=== PATIENT | male | born 1955 | race American Indian/Alaskan Native ===

== ENCOUNTER 2020-11-06 10:52 | Emergency (ER) | payer MEDICARE ==
[2020-11-06] MEDS ORDERED: ALUM-MAG HYDROXIDE-SIMETHICONE 200-200-20MG/5ML ORAL LIQD 30 ML PO ONE (12:28)
--- NOTE | 2020-11-06 12:32 | Emergency Department Report ---
ED Chest Pain HPI - General Chief Complaint: Chest Pain Stated Complaint: CHEST PAIN X7DAYS Time Seen by Provider: 11/06/20 12:18 Source: patient Mode of arrival: Wheelchair Limitations: No Limitations - History of Present Illness Initial Comments: 65-year-old male with a past medical history of diabetes, hypertension, elevated cholesterol, and a psychiatric disorder presents from [place] with complaints of intermittent left-sided chest pain for the last 2 weeks. No aggravating alleviating factors reported. Pain is rated 5/10 in intensity. Associated with belching and what feels like a rumbling of gas. Patient denies nausea, vomiting, diaphoresis, shortness of breath, calf tenderness, leg edema, history of PE/DVT. He is a non-smoker and he denies family history of CAD. Patient states he has been in and out of multiple hospitals for the last 6 months and has had a recent cardiac work-up including a stress test at [facility] in [facility] 2020. He denies known history of CAD or peptic ulcer disease. Patient states he received aspirin prior to arrival Medications include Zoloft, Depakote, Colace, MiraLAX, Vistaril, amlodipine, Met formin, Tylenol, sliding scale Humalog insulin Severity scale (0 -10): 5 - Related Data Previous Rx's Medication Instructions Recorded Last Taken Type Aspirin 325 mg PO QDAY #30 tablet 11/06/20 Unknown Rx Famotidine [Pepcid] 20 mg PO BID #30 tablet 11/06/20 Unknown Rx Mag Hydrox/Aluminum Hyd/Simeth 20 ml PO QID PRN #1 bottle 11/06/20 Unknown Rx [Maalox Advanced Suspension] Allergies Allergy/AdvReac Type Severity Reaction Status Date / Time No Known Allergies Allergy Unverified 11/06/20 11:01 Heart Score - HEART Score History: Slightly suspicious EKG: Normal Age: > 65 Risk factors: > 3 risk factors or hx of atherosclerotic disease Troponin: < normal limit HEART Score: 4 - EKG Read Time Time EKG Completed: 11:59 EKG Read Time: 12:05 ED Review of Systems ROS: Stated complaint: CHEST PAIN X7DAYS Other details as noted in HPI Comment: All other systems reviewed and negative ED Past Medical Hx - Past Medical History Additional medical history: Normal stress test February 2020 EF 60% at [facility] - Medications Home Medications: Home Medications Medication Instructions Recorded Confirmed Last Taken Type Aspirin 325 mg PO QDAY #30 tablet 11/06/20 Unknown Rx Famotidine [Pepcid] 20 mg PO BID #30 tablet 11/06/20 Unknown Rx Mag Hydrox/Aluminum Hyd/Simeth 20 ml PO QID PRN #1 bottle 11/06/20 Unknown Rx [Maalox Advanced Suspension] ED Physical Exam - General Limitations: No Limitations - Other Other exam information: General: No acute distress Head: Atraumatic Eyes: normal appearance ENT: Moist mucous membranes Neck: Normal appearance, no midline tenderness Chest: Clear to auscultation bilaterally CV: Regular rate and rhythm Abdomen: Soft, normal bowel sounds, nontender, nondistended, no rebound or guarding Back: Normal inspection Extremity: Normal inspection, full range of motion, no calf tenderness or leg edema Neuro: Alert O x 3, no facial asymmetry, speech clear, no gross motor sensory deficit Psych: Appropriate behavior Skin: No rash ED Course Vital Signs 11/06/20 11/06/20 11/06/20 12:09 12:27 17:47 Temperature 98.7 F Pulse Rate 88 88 Respiratory 19 19 Rate Blood Pressure 165/88 142/88 [Right] O2 Sat by Pulse 99 99 Oximetry - Consultations Consultation #1: 11/06/20 13:55 Case discussed with cardiology on-call Dr. Mccullough who was able to review medical record at [facility]. Patient had a normal stress test with a EF of 60% in February 2020 ED Medical Decision Making - Lab Data Result diagrams: 11/06/20 12:58 11/06/20 12:58 Lab Results 11/06/20 11/06/20 11/06/20 Range/Units 12:58 12:58 12:58 WBC 3.0 L (4.5-11.0) K/mm3 RBC 4.86 (3.65-5.03) M/mm3 Hgb 13.8 (11.8-15.2) gm/dl Hct 41.1 (35.5-45.6) % MCV 85 (84-94) fl MCH 28 (28-32) pg MCHC 34 (32-34) % RDW 15.3 H (13.2-15.2) % Plt Count 180 (140-440) K/mm3 Lymph % (Auto) 35.6 H (13.4-35.0) % [place] % (Auto) 9.9 H (0.0-7.3) % Eos % (Auto) 0.8 (0.0-4.3) % Baso % (Auto) 0.6 (0.0-1.8) % Lymph # (Auto) 1.1 L (1.2-5.4) K/mm3 [place] # (Auto) 0.3 (0.0-0.8) K/mm3 Eos # (Auto) 0.0 (0.0-0.4) K/mm3 Baso # (Auto) 0.0 (0.0-0.1) K/mm3 Seg Neutrophils % 53.1 (40.0-70.0) % Seg Neutrophils # 1.6 L (1.8-7.7) K/mm3 D-Dimer 200.22 (0-234) ng/mlDDU Sodium 137 (137-145) mmol/L Potassium 4.2 (3.6-5.0) mmol/L Chloride 103.3 (98-107) mmol/L Carbon Dioxide 26 (22-30) mmol/L Anion Gap 12 mmol/L BUN 7 L (9-20) mg/dL Creatinine 0.9 (0.8-1.3) mg/dL Estimated GFR > 60 ml/min BUN/Creatinine Ratio 8 % Glucose 168 H (75-100) mg/dL Calcium 9.1 (8.4-10.2) mg/dL Troponin T < 0.010 (0.00-0.029) ng/mL Urine Color (Yellow) Urine Turbidity (Clear) Urine pH (5.0-7.0) Ur Specific [place] (1.003-1.030) Urine Protein (Negative) mg/dL Urine Glucose (UA) (Negative) mg/dL Urine Ketones (Negative) mg/dL Urine Blood (Negative) Urine Nitrite (Negative) Urine Bilirubin (Negative) Urine Urobilinogen (<2.0) mg/dL Ur Leukocyte Esterase (Negative) Urine WBC (Auto) (0.0-6.0) /HPF Urine RBC (Auto) (0.0-6.0) /HPF 11/06/20 11/06/20 Range/Units 15:53 17:47 WBC (4.5-11.0) K/mm3 RBC (3.65-5.03) M/mm3 Hgb (11.8-15.2) gm/dl Hct (35.5-45.6) % MCV (84-94) fl MCH (28-32) pg MCHC (32-34) % RDW (13.2-15.2) % Plt Count (140-440) K/mm3 Lymph % (Auto) (13.4-35.0) % [place] % (Auto) (0.0-7.3) % Eos % (Auto) (0.0-4.3) % Baso % (Auto) (0.0-1.8) % Lymph # (Auto) (1.2-5.4) K/mm3 [place] # (Auto) (0.0-0.8) K/mm3 Eos # (Auto) (0.0-0.4) K/mm3 Baso # (Auto) (0.0-0.1) K/mm3 Seg Neutrophils % (40.0-70.0) % Seg Neutrophils # (1.8-7.7) K/mm3 D-Dimer (0-234) ng/mlDDU Sodium (137-145) mmol/L Potassium (3.6-5.0) mmol/L Chloride (98-107) mmol/L Carbon Dioxide (22-30) mmol/L Anion Gap mmol/L BUN (9-20) mg/dL Creatinine (0.8-1.3) mg/dL Estimated GFR ml/min BUN/Creatinine Ratio % Glucose (75-100) mg/dL Calcium (8.4-10.2) mg/dL Troponin T < 0.010 (0.00-0.029) ng/mL Urine Color Straw (Yellow) Urine Turbidity Clear (Clear) Urine pH 8.0 H (5.0-7.0) Ur Specific [place] 1.005 (1.003-1.030) Urine Protein <15 mg/dl (Negative) mg/dL Urine Glucose (UA) 50 (Negative) mg/dL Urine Ketones Neg (Negative) mg/dL Urine Blood Neg (Negative) Urine Nitrite Neg (Negative) Urine Bilirubin Neg (Negative) Urine Urobilinogen 4.0 (<2.0) mg/dL Ur Leukocyte Esterase Neg (Negative) Urine WBC (Auto) < 1.0 (0.0-6.0) /HPF Urine RBC (Auto) 1.0 (0.0-6.0) /HPF - EKG Data -: EKG Interpreted by Me EKG shows normal: sinus rhythm, intervals (QTC 429), QRS complexes (QRS duration 82), ST-T waves (No STEMI) Rate: normal - Radiology Data Radiology results: report reviewed Chest x-ray: No acute finding - Medical Decision Making 65-year-old male presents to the hospital with atypical chest pain described as feeling like gas without associated symptoms. Patient had similar symptoms in the past and has been present for the last 2 weeks. EKG normal sinus rhythm x2. Troponin negative x2. D-dimer negative without risk factors for PE/DVT. Patient had a negative stress test 8 months ago and has had normal EKGs in his doctor's office as well per his history. Patient provided Maalox with decrease in pain. While here in the ED patient states he has developed some difficulty urinating but has several urinals at the bedside. UA does not reveal infection. Patient will be discharged home with outpatient follow-up and meds for possible indigestion and daily aspirin. Cardiology follow-up encouraged Critical Care Time: No Critical care attestation.: If time is entered above; I have spent that time in minutes in the direct care of this critically ill patient, excluding procedure time. ED Disposition Clinical Impression: Atypical chest pain, Indigestion Disposition: 01 HOME / SELF CARE / HOMELESS Is pt being admited?: No Does the pt Need Aspirin: No Condition: Stable Instructions: Indigestion, Pain Without a Known Cause Additional Instructions: Take the medication as prescribed. Follow-up with your doctor or doctor/clinic provided. Return if symptoms worsen as indicated by your discharge instructions. It is very important you follow-up with a human resource intern on outpatient basis. Prescriptions: Aspirin 325 mg PO QDAY #30 tablet Mag Hydrox/Aluminum Hyd/Simeth [Maalox Advanced Suspension] 20 ml PO QID PRN #1 bottle PRN Reason: Indigestion Famotidine [Pepcid] 20 mg PO BID #30 tablet Referrals: SCOT MCCULLOUGH MD [Staff Physician] - 2-3 Days Time of Disposition: 19:02
--- NOTE | 2020-11-06 12:54 | XRay Report ---
CHEST 1 VIEW 11/06/2020 12:24 PM INDICATION / CLINICAL INFORMATION: Chest Pain. COMPARISON: None available. FINDINGS: SUPPORT DEVICES: None. HEART / MEDIASTINUM: No significant abnormality. LUNGS / PLEURA: No significant pulmonary or pleural abnormality. No pneumothorax. ADDITIONAL FINDINGS: No significant additional findings. IMPRESSION: 1. No acute findings. Signer Name: Rafael Acosta MD Signed: 11/06/2020 12:50 PM Workstation Name: [id number]
[2020-11-06 13:18] LABS: Basophils % (Auto) 0.6 % (0.0-1.8); Eosinophils % (Auto) 0.8 % (0.0-4.3); Hematocrit 41.1 % (35.5-45.6); Hemoglobin 13.8 gm/dl (11.8-15.2); Lymphocytes # (Auto) 1.1 K/mm3 (1.2-5.4); Lymphocytes % (Auto) 35.6 % (13.4-35.0); Mean Corpuscular HGB Conc 34 % (32-34); Mean Corpuscular Volume 85 fl (84-94); Monocytes # (Auto) 0.3 K/mm3 (0.0-0.8); Monocytes % (Auto) 9.9 % (0.0-7.3); Platelet Count 180 K/mm3 (140-440); Red Blood Count 4.86 M/mm3 (3.65-5.03); Red Cell Distribution Width 15.3 % (13.2-15.2)
[2020-11-06 13:40] LABS: BUN/Creatinine Ratio 8; Blood Urea Nitrogen 7 mg/dL (9-20); Calcium 9.1 mg/dL (8.4-10.2); Hemolysis Index 18
[2020-11-06 18:30] LABS: Bilirubin,Urine NEG (Negative); Blood,Urine NEG (Negative); Color,Urine Straw (Yellow); Protein,Urine <15 mg/dL mg/dL (Negative); WBC,Urine < 1.0 /HPF (0.0-6.0)
[2020-11-06 20:03] VITALS: BP 142/78
--- NOTE | 2020-11-10 10:53 | Electrocardiograph Report ---
[facility] Test Date: 2020-11-06 Test Time: 11:59:56 Pat Name: MIHAELA DESAI Department: Room: Gender: M Handling Tech: KARLO : 1955 Requested By: JACKSON CROSS Order Number: [id number] Reading MD: Addis Mccullough Measurements Intervals [place] Rate: 82 P: 54 MT: 154 QRS: 12 QRSD: 82 T: 38 QT: 368 QTc: 429 Interpretive Statements Sinus rhythm No previous ECG available for comparison Electronically Signed On 11-10-2020 10:53:42 EDT by Addis Mccullough
--- NOTE | 2020-11-10 10:58 | Electrocardiograph Report ---
[facility] Test Date: 2020-11-06 Test Time: 17:51:07 Pat Name: MIHAELA DESAI Department: Room: Gender: M Property Man: william : 1955 Requested By: JACKSON CROSS Order Number: [id number] Reading MD: Addis Mccullough Measurements Intervals [place] Rate: 89 P: 57 UT: 151 QRS: 29 QRSD: 80 T: 29 QT: 353 QTc: 429 Interpretive Statements Sinus rhythm Compared to ECG 11/06/2020 11:59:56 No significant changes Electronically Signed On 11-10-2020 10:58:07 EDT by Addis Mccullough
== END 2020-11-06 21:55 | disposition home or self-care (01) ==
LOC: ED 10:52
DX: R07.89 Other chest pain (principal); K30 Functional dyspepsia
CPT/HCPCS: 36415; 71045; 80048; 81001; 84484; 85025; 85379; 93005; 99284